=== PATIENT | female | born 1940 | race Caucasian/White ===

== ENCOUNTER 2017-11-08 11:56 | Emergency (ER) | payer MEDICARE, OTHER ==
[~2017-11-08] VITALS: Ht 165.1 cm; Wt 105.2 kg
[~2017-11-08 11:56] MED LIST: TRAMADOL HCL50 M1 PO; Z.0.BACTRIM DS TAB1 PO; Z.0.MIRAPEX0.25 MG PO; Z.0.NORCO 5-325 TA1 PO
== END 2017-11-08 12:25 | disposition home or self-care (01) ==
LOC: FSED 11:56
DX: H10.402 Unspecified chronic conjunctivitis, left eye (principal)
CPT/HCPCS: 99282

== ENCOUNTER 2018-08-27 08:38 | Emergency (ER) | payer MEDICARE ==
[~2018-08-27] VITALS: Ht 165.1 cm; Wt 105.2 kg
== END 2018-08-27 09:19 | disposition home or self-care (01) ==
LOC: FSED 08:38
DX: K08.89 Other specified disorders of teeth and supporting structures (principal); K02.9 Dental caries, unspecified; G25.81 Restless legs syndrome
CPT/HCPCS: 99282

== ENCOUNTER → 2019-12-20 | Outpatient (CLI) | payer MEDICARE ==
[~2019-12-20] MED LIST changes: +DEXMEDETOMIDINE HCL 2 ML ONE; +FENTANYL CITRATE/PF 100MCG/2 ML INJ ONE; +LACTATED RINGER'S 1,000 ML ONE; +LORAZEPAM INJ 2 MG/ML VIAL ONE; +MIDAZOLAM HCL 2 MG/2 ML VIAL ONE
[2019-12-20 12:30] LABS: BASOPHILS % 0.5 % (0.0-1.0); EOSINOPHILS # (AUTO) 0.2 (0.0-0.4); EOSINOPHILS % 2.4 % (0.0-6.0); HEMATOCRIT 40.6 % (34.2-44.1); HEMOGLOBIN 12.7 g/dL (12.0-16.0); LYMPHOCYTES # (AUTO) 2.1 (1.0-3.2); LYMPHOCYTES % 31.6 % (18.0-39.1); MEAN CORPUSCULAR HEMOGLOBIN 26.1 pg (28-32); MEAN CORPUSCULAR HGB CONC 31.3 g/dL (31-35); MEAN CORPUSCULAR VOLUME 83.4 fL (81-99); MONOCYTES # (AUTO) 0.5 (0.2-0.8); MONOCYTES % 6.9 % (4.4-11.3); NEUTROPHILS # (AUTO) 3.9 (2.1-6.9); NEUTROPHILS % 58.4 % (38.7-80.0); PLATELET COUNT 226 x10e3/uL (140-360); RED BLOOD COUNT 4.87 x10e6/uL (3.6-5.1); RED CELL DISTRIBUTION WIDTH 14.2 % (11.7-14.4)
[2019-12-20 12:49] LABS: ANION GAP 16.3 mmol/L (8-16); BLOOD UREA NITROGEN 14 mg/dL (7-26); BUN/CREATININE RATIO 18 (6-25); CALCIUM 9.5 mg/dL (8.4-10.2); CARBON DIOXIDE 22 mmol/L (22-29); CHLORIDE 104 mmol/L (98-107); CREATININE, SERUM 0.77 mg/dL (0.57-1.11); EST GLOMERULAR FILTRATION RATE > 60 ML/MIN (60-); GLUCOSE 90 mg/dL (74-118); POTASSIUM 4.3 mmol/L (3.5-5.1); SODIUM 138 mmol/L (136-145)
--- NOTE | 2019-12-20 12:54 | Diagnostic Imaging Report ---
EXAMINATION: CHEST 2 VIEWS INDICATION: Pre-operative COMPARISON: None FINDINGS: LINES/TUBES:None LUNGS:The lungs are well-inflated. No focal consolidation or pulmonary edema. PLEURA:No pleural effusion or pneumothorax. MEDIASTINUM:The cardiomediastinal silhouette appears normal in size and shape. BONES/SOFT TISSUES:No acute osseous injury. ABDOMEN:No free air under the diaphragm. IMPRESSION: No metallic implanted devices or foreign bodies in the thorax. No focal pneumonia or pulmonary edema. Signed by: Oj Kay MD on 12/20/2019 12:50 PM
--- NOTE | 2019-12-20 15:28 | Diagnostic Imaging Report ---
MRI of the right hip without contrast. History: Hip pain. Back pain. Decreased range of motion. Pain not responding to conservative management. Technique: Multiplanar multisequence MRI of the right hip without contrast. Comparison MRI from the same day of the lumbar spine Findings: Please see report from MRI lumbar spine from the same day for further details. No acute fracture, subluxation or avascular necrosis about the right hip. Scattered degenerative change about the visualized lower lumbar spine and pelvis. The urinary bladder and remainder of the visualized pelvic structures are grossly unremarkable. 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 Degenerative type tearing of the right hip labrum. Physiologic amount of fluid in the right hip joint. The remainder of the visualized ligaments and tendons about the right hip are intact. Soft tissue edema adjacent to the right hip greater trochanter could be due to trochanteric bursitis. The visualized neurovascular bundles are intact. There is mild degenerative arthrosis in the left hip joint and findings which could be due to left-sided greater trochanteric bursitis. 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 Soft tissue edema adjacent to the right hip greater trochanter could be due to trochanteric bursitis. There is mild degenerative arthrosis in the left hip joint and findings which could be due to left-sided greater trochanteric bursitis. Signed by: Dr. Jordon Reed M.D. on 12/20/2019 3:25 PM
--- NOTE | 2019-12-21 11:16 | Diagnostic Imaging Report ---
MRI SPINE LUMBAR WO HISTORY: Leg pain, back pain; right groin and hip pain COMPARISON: Report from CT of the abdomen/pelvis dated 12/15/2011 TECHNIQUE: Sagittal T1, sagittal T2, sagittal STIR, axial T2, coronal T2, and axial proton density weighted images of the lumbar spine were obtained without contrast. DISCUSSION: Number of non-rib bearing lumbar vertebral bodies: 5. Alignment: Normal lordosis. Mild thoracolumbar levoscoliosis is present. Vertebrae: Scattered nodular T1 hyperintense vertebral body lesions are benign hemangiomas. Otherwise, no fractures, or neoplasm. Conus medullaris: Normal, ends at L1-L2. Cauda equina: No masses or arachnoiditis. Posterior paraspinal muscles: There is mild paraspinal atrophy and edema at the lumbosacral junction. Soft tissues: Cholelithiasis is present. Small nodular T2 hyperintense lesions in the right kidney are most likely cysts. Moderate multilevel disc degeneration is present. There are nonspecific mild inflammatory endplate changes at L3-L4 and L4-L5. T12-L1: Patent canal and foramina. L1-L2: Mild to moderate canal stenosis due to disc bulge and ligamentum flavum thickening. The lateral recesses are slightly effaced, right greater than left. Mild bilateral foraminal stenoses due to disc bulge and facet arthrosis. L2-L3: There is mild retrolisthesis of L2 on L3. Mild to moderate canal stenosis due to disc bulge and ligamentum flavum thickening with slight effacement of the bilateral lateral recesses. Mild right and moderate left foraminal stenoses due to disc bulge and facet arthrosis. L3-L4: Mild canal stenosis due to disc bulge and ligamentum flavum thickening. The left lateral recess is slightly effaced. Mild to moderate bilateral foraminal stenoses due to disc bulge and facet arthrosis. L4-L5: Grade 1 anterolisthesis of L4 on L5 due to severe bilateral facet arthrosis. Periarticular edema along the bilateral L4-L5 facet joints is associated with small joint effusions and small posterior synovial cysts. Moderate canal stenosis due to uncovered disc bulge and ligamentum flavum thickening. The left lateral recess is effaced. The descending left L5 nerve root is likely compressed. Mild to moderate right and moderate left foraminal stenoses due to uncovered disc bulge and facet arthrosis. L5-S1: Patent canal and foramina. IMPRESSION: 1. Moderate multilevel disc degeneration with nonspecific minimal inflammatory endplate changes at L3-L4 and L4-L5. 2. Grade 1 anterolisthesis of L4 on L5 due to advanced bilateral L4-L5 facet arthrosis. Bilateral L4-L5 facet synovitis is present. 3. Multilevel degenerative canal stenoses - moderate at L4-L5. 4. Mild to moderate multilevel bilateral degenerative foraminal stenoses as described above. Signed by: Dr. David Fragoso M.D. on 12/21/2019 11:13 AM
== END ==
LOC: MRI 12-05 08:10
PROVIDERS: ATTEND Student in an Organized Health Care Education/Training Program
DX: M79.606 Pain in leg, unspecified (principal); M54.5 Low back pain; Z11.59 Encounter for screening for other viral diseases
CPT/HCPCS: 36415; 71046; 72148; 73721; 80048; 85025; 93005; J2060; J2250; J3010; J7121; U0002

== ENCOUNTER 2021-05-24 22:08 | Emergency (ER) | payer MEDICARE ==
[~2021-05-24] VITALS: Ht 165.1 cm; Wt 105.2 kg
[~2021-05-24 22:08] MED LIST changes: -DEXMEDETOMIDINE HCL 2 ML ONE; -FENTANYL CITRATE/PF 100MCG/2 ML INJ ONE; -LACTATED RINGER'S 1,000 ML ONE; -LORAZEPAM INJ 2 MG/ML VIAL ONE; -MIDAZOLAM HCL 2 MG/2 ML VIAL ONE
[2021-05-24 22:50] LABS: BASOPHILS % 0.5 % (0.0-1.0); EOSINOPHILS # (AUTO) 0.1 (0.0-0.4); EOSINOPHILS % 2.2 % (0.0-6.0); HEMATOCRIT 36.8 % (34.2-44.1); LYMPHOCYTES # (AUTO) 1.6 (1.0-3.2); LYMPHOCYTES % 25.4 % (18.0-39.1); MEAN CORPUSCULAR HEMOGLOBIN 24.9 pg (28-32); MEAN CORPUSCULAR HGB CONC 29.9 g/dL (31-35); MEAN CORPUSCULAR VOLUME 83.4 fL (81-99); MONOCYTES # (AUTO) 0.4 (0.2-0.8); MONOCYTES % 6.7 % (4.4-11.3); NEUTROPHILS # (AUTO) 4.1 (2.1-6.9); NEUTROPHILS % 64.9 % (38.7-80.0); PLATELET COUNT 194 x10e3/uL (140-360); RED BLOOD COUNT 4.41 x10e6/uL (3.6-5.1); RED CELL DISTRIBUTION WIDTH 14.4 % (11.7-14.4)
[2021-05-24 23:07] LABS: ALBUMIN 3.6 g/dL (3.5-5.0); ALBUMIN/GLOBULIN RATIO 1.1 (0.8-2.0); ANION GAP 13.2 mmol/L (8-16); CALCIUM 9.4 mg/dL (8.4-10.2); CREATININE, SERUM 0.76 mg/dL (0.57-1.11); POTASSIUM 4.2 mmol/L (3.5-5.1)
[2021-05-25] MEDS ORDERED: TRAMADOL HCL 50 MG TAB PO ONE
[2021-05-25] MEDS ORDERED: ULTRAM 50MG50 MG PO (00:48)
== END 2021-05-25 00:55 | disposition home or self-care (01) ==
LOC: ER 23:00
DX: S39.012A Strain of muscle, fascia and tendon of lower back, initial encounter (principal); G25.81 Restless legs syndrome; H35.30 Unspecified macular degeneration; I50.9 Heart failure, unspecified; Z87.442 Personal history of urinary calculi
CPT/HCPCS: 36415; 74176; 80053; 85025; 99284

== ENCOUNTER 2021-12-19 01:00 | Inpatient (IN) | payer MEDICARE ==
[~2021-12-19] VITALS: Ht 167.6 cm; Wt 107.6 kg
[2021-12-19] VITALS (9 sets, daily range): BP systolic 119–156; BP diastolic 46–64
[~2021-12-19 01:00] MED LIST changes: +ULTRAM 50MG50 MG PO
[2021-12-19] MEDS ORDERED: ONDANSETRON HCL INJ 2MG/ML 2ML 2 MG/ML VIAL IV PRN (01:30)
[2021-12-19] MEDS ORDERED: SODIUM CHLORIDE 0.9% 1000ML 1,000 ML IV SCH (01:30)
[2021-12-19] MEDS ORDERED: Morphine 4mg INJECTION 4 MG/ML INJ IV PRN (01:30)
[2021-12-19] MEDS ORDERED: FENTANYL CITRATE/PF 100MCG/2 ML INJ ONE (01:36)
[2021-12-19] MEDS ORDERED: ONDANSETRON HCL INJ 2MG/ML 2ML 2 MG/ML VIAL ONE (01:36)
[2021-12-19] MEDS ORDERED: SODIUM CHLORIDE 0.9% 1000ML 1,000 ML ONE (01:36)
[2021-12-19 01:38] LABS: BASOPHILS # (AUTO) 0.1 (0.0-0.1); BASOPHILS % 0.7 % (0.0-1.0); EOSINOPHILS # (AUTO) 0.8 (0.0-0.4); EOSINOPHILS % 9.7 % (0.0-6.0); HEMATOCRIT 34.2 % (34.2-44.1); HEMOGLOBIN 10.3 g/dL (12.0-16.0); LYMPHOCYTES # (AUTO) 2.4 (1.0-3.2); MEAN CORPUSCULAR HEMOGLOBIN 25.4 pg (28-32); MEAN CORPUSCULAR HGB CONC 30.1 g/dL (31-35); MEAN CORPUSCULAR VOLUME 84.2 fL (81-99); MONOCYTES # (AUTO) 0.5 (0.2-0.8); MONOCYTES % 5.8 % (4.4-11.3); NEUTROPHILS # (AUTO) 4.4 (2.1-6.9); NEUTROPHILS % 53.7 % (38.7-80.0); PLATELET COUNT 294 x10e3/uL (140-360); RED BLOOD COUNT 4.06 x10e6/uL (3.6-5.1); RED CELL DISTRIBUTION WIDTH 17.6 % (11.7-14.4)
[2021-12-19] MEDS ORDERED: FENTANYL CITRATE/PF 100MCG/2 ML INJ IV ONE (01:45)
[2021-12-19 01:57] LABS: ALBUMIN 3.4 g/dL (3.5-5.0); ALBUMIN/GLOBULIN RATIO 0.9 (0.8-2.0); ANION GAP 16.5 mmol/L (8-16); CREATININE, SERUM 0.83 mg/dL (0.57-1.11); POTASSIUM 4.5 mmol/L (3.5-5.1)
[2021-12-19 01:58] LABS: CREATINE KINASE MB 1.6 ng/mL (0-5.0)
[2021-12-19] MEDS ORDERED: NEURONTIN100 MG PO (04:32)
[2021-12-19] MEDS ORDERED: DOCUSATE SODIUM 100 MG CAP PO PRN (14:30)
[2021-12-19] MEDS ORDERED: SODIUM CHLORIDE 0.45% 1,000 ML IV ONE (14:30)
[2021-12-19] MEDS ORDERED: ACETAMINOPHEN 325 MG TAB PO PRN (14:30)
[2021-12-19] MEDS: GABAPENTIN 100 MG CAP PO SCH (16:05)
[2021-12-19] MEDS: PRAMIPEXOLE DIHYDROCHLORIDE 0.25 MG TAB PO SCH (18:16)
[2021-12-19] MEDS: FUROSEMIDE INJ 10 MG/ML 2 ML VIAL IV SCH (20:04)
[2021-12-19] MEDS: TRAMADOL HCL 50 MG TAB PO PRN (20:04)
[2021-12-20] VITALS (8 sets, daily range): BP systolic 106–133; BP diastolic 47–58
[2021-12-20 05:55] LABS: BASOPHILS # (AUTO) 0.1 (0.0-0.1); BASOPHILS % 0.7 % (0.0-1.0); EOSINOPHILS # (AUTO) 0.9 (0.0-0.4); EOSINOPHILS % 11.8 % (0.0-6.0); HEMATOCRIT 28.9 % (34.2-44.1); HEMOGLOBIN 8.9 g/dL (12.0-16.0); LYMPHOCYTES # (AUTO) 2.3 (1.0-3.2); LYMPHOCYTES % 31.4 % (18.0-39.1); MEAN CORPUSCULAR HEMOGLOBIN 25.7 pg (28-32); MEAN CORPUSCULAR HGB CONC 30.8 g/dL (31-35); MEAN CORPUSCULAR VOLUME 83.5 fL (81-99); MONOCYTES # (AUTO) 0.5 (0.2-0.8); MONOCYTES % 6.4 % (4.4-11.3); NEUTROPHILS # (AUTO) 3.5 (2.1-6.9); NEUTROPHILS % 49.1 % (38.7-80.0); PLATELET COUNT 245 x10e3/uL (140-360); RED BLOOD COUNT 3.46 x10e6/uL (3.6-5.1); RED CELL DISTRIBUTION WIDTH 18.1 % (11.7-14.4)
[2021-12-20 06:17] LABS: CHOL/HDL RATIO 2.7 (3.0-3.6)
[2021-12-20 06:18] LABS: ALBUMIN 2.8 g/dL (3.5-5.0); ANION GAP 13.5 mmol/L (8-16); CALCIUM 8.3 mg/dL (8.4-10.2); CREATININE, SERUM 0.72 mg/dL (0.57-1.11); POTASSIUM 4.5 mmol/L (3.5-5.1)
[2021-12-20] MEDS: FUROSEMIDE INJ 10 MG/ML 2 ML VIAL IV SCH (09:00)
[2021-12-20] MEDS ORDERED: PRAMIPEXOLE DIHYDROCHLORIDE 0.25 MG TAB PO SCH (09:00)
[2021-12-20] MEDS: GABAPENTIN 100 MG CAP PO SCH ×2 (09:02→16:11)
[2021-12-20] MEDS: MULTIVITAMINS/MINERALS TAB PO SCH (09:02)
[2021-12-20] MEDS: PRAMIPEXOLE DIHYDROCHLORIDE 0.25 MG TAB PO SCH (09:03)
[2021-12-20] MEDS ORDERED: ACETAMINOPHEN 325 MG TAB PO PRN (10:30)
[2021-12-20] MEDS: TRAMADOL HCL 50 MG TAB PO SCH ×2 (11:56→16:11)
[2021-12-21] VITALS (8 sets, daily range): BP systolic 125–157; BP diastolic 46–64
[2021-12-21] MEDS: MULTIVITAMINS/MINERALS TAB PO SCH (08:22)
[2021-12-21] MEDS: FUROSEMIDE INJ 10 MG/ML 4 ML VIAL IV SCH (08:22)
[2021-12-21] MEDS: GABAPENTIN 100 MG CAP PO SCH ×2 (08:22→17:18)
[2021-12-21] MEDS: TRAMADOL HCL 50 MG TAB PO SCH ×2 (08:23→17:19)
[2021-12-21] MEDS: FUROSEMIDE INJ 10 MG/ML 4 ML VIAL IV ONE (17:19)
[2021-12-21] MEDS: ALLOPURINOL 100 MG TAB PO SCH (18:46)
[2021-12-21] MEDS: METHYLPREDNISOLONE SOD SUCC 40 MG/ML VIAL 1ML IV SCH (18:46)
[2021-12-21] MEDS ORDERED: PRAMIPEXOLE DIHYDROCHLORIDE 0.25 MG TAB PO SCH (21:00)
[2021-12-22] VITALS (7 sets, daily range): BP systolic 114–141; BP diastolic 47–64
[2021-12-22] MEDS: METHYLPREDNISOLONE SOD SUCC 40 MG/ML VIAL 1ML IV SCH ×3 (06:03→17:40)
[2021-12-22 06:55] LABS: BASOPHILS % 0.3 % (0.0-1.0); EOSINOPHILS % 0.3 % (0.0-6.0); HEMATOCRIT 35.2 % (34.2-44.1); HEMOGLOBIN 10.7 g/dL (12.0-16.0); LYMPHOCYTES % 27.5 % (18.0-39.1); MEAN CORPUSCULAR HEMOGLOBIN 25.1 pg (28-32); MEAN CORPUSCULAR HGB CONC 30.4 g/dL (31-35); MEAN CORPUSCULAR VOLUME 82.6 fL (81-99); MONOCYTES # (AUTO) 0.1 (0.2-0.8); NEUTROPHILS # (AUTO) 2.5 (2.1-6.9); NEUTROPHILS % 68.4 % (38.7-80.0); PLATELET COUNT 292 x10e3/uL (140-360); RED BLOOD COUNT 4.26 x10e6/uL (3.6-5.1); RED CELL DISTRIBUTION WIDTH 16.9 % (11.7-14.4)
[2021-12-22 07:24] LABS: ANION GAP 16.2 mmol/L (8-16); CALCIUM 9.1 mg/dL (8.4-10.2); CREATININE, SERUM 0.77 mg/dL (0.57-1.11); MAGNESIUM 2.1 MG/DL (1.3-2.1); POTASSIUM 4.2 mmol/L (3.5-5.1)
[2021-12-22] MEDS: ALLOPURINOL 100 MG TAB PO SCH (08:47)
[2021-12-22] MEDS: MULTIVITAMINS/MINERALS TAB PO SCH (08:47)
[2021-12-22] MEDS: METOPROLOL SUCCINATE 25 MG TAB XL PO SCH (08:48)
[2021-12-22] MEDS: TRAMADOL HCL 50 MG TAB PO SCH ×2 (08:48→16:28)
[2021-12-22] MEDS: GABAPENTIN 100 MG CAP PO SCH ×2 (08:48→16:28)
[2021-12-22] MEDS: FUROSEMIDE INJ 10 MG/ML 4 ML VIAL IV SCH (08:48)
[2021-12-22] MEDS ORDERED: FUROSEMIDE INJ 10 MG/ML 4 ML VIAL IV ONE (16:00)
[2021-12-22] MEDS: FUROSEMIDE INJ 10 MG/ML 4 ML VIAL IV ONE (17:40)
[2021-12-22] MEDS ORDERED: PRAMIPEXOLE DIHYDROCHLORIDE 0.25 MG TAB PO SCH ×2 (18:00→21:00)
[2021-12-23] VITALS: BP 117/45
[2021-12-23] MEDS: TRAMADOL HCL 50 MG TAB PO PRN (03:53)
[2021-12-23 04:00] VITALS: BP 123/60
[2021-12-23] MEDS: METHYLPREDNISOLONE SOD SUCC 40 MG/ML VIAL 1ML IV SCH ×2 (06:00→18:36)
[2021-12-23] MEDS ORDERED: ONDANSETRON HCL 4 MG ORAL DISINTEGRATING TAB SL PRN (07:45)
[2021-12-23 08:00] VITALS: BP 123/72
[2021-12-23 08:12] VITALS: BP 123/72
[2021-12-23] MEDS: GABAPENTIN 100 MG CAP PO SCH ×2 (08:58→16:32)
[2021-12-23] MEDS: FUROSEMIDE INJ 10 MG/ML 4 ML VIAL IV SCH (08:59)
[2021-12-23] MEDS: MULTIVITAMINS/MINERALS TAB PO SCH (09:00)
[2021-12-23] MEDS: METOPROLOL SUCCINATE 25 MG TAB XL PO SCH (09:00)
[2021-12-23] MEDS: ALLOPURINOL 100 MG TAB PO SCH (09:00)
[2021-12-23] MEDS: TRAMADOL HCL 50 MG TAB PO SCH ×2 (09:00→16:32)
[2021-12-23 12:06] VITALS: BP 134/63
[2021-12-23 15:57] VITALS: BP 122/60
[2021-12-23] MEDS ORDERED: FUROSEMIDE INJ 10 MG/ML 4 ML VIAL IV ONE (16:00)
[2021-12-23] MEDS ORDERED: ALLOPURINOL100 MG PO (16:37)
[2021-12-23] MEDS ORDERED: TOPROL XL25 MG PO (16:37)
[2021-12-23] MEDS ORDERED: LASIX20 MG PO (16:37)
[2021-12-23] MEDS ORDERED: PREDNISONE20 MG PO (16:37)
[2021-12-23] MEDS ORDERED: PRAMIPEXOLE DIHYDROCHLORIDE 0.25 MG TAB PO SCH (17:00)
== END 2021-12-23 19:12 | DRG 564 ==
LOC: ER 01:10 → ERHOLD 01:31 → MED/SURG3 03:07 → OBSVTOIN 12-21 07:36
PROVIDERS: ADMIT Internal Medicine; ATTEND Internal Medicine
DX: M23.41 Loose body in knee, right knee (principal); I50.33 Acute on chronic diastolic (congestive) heart failure; R64 Cachexia; M17.11 Unilateral primary osteoarthritis, right knee; I11.0 Hypertensive heart disease with heart failure; E86.0 Dehydration; M10.9 Gout, unspecified; E66.09 Other obesity due to excess calories; Z68.38 Body mass index [BMI] 38.0-38.9, adult; G25.81 Restless legs syndrome; Z87.891 Personal history of nicotine dependence; R62.7 Adult failure to thrive; Z96.641 Presence of right artificial hip joint; S83.241A Other tear of medial meniscus, current injury, right knee, initial encounter; Z20.822 Contact with and (suspected) exposure to COVID-19
CPT/HCPCS: 0223U; 36415; 71046; 80048; 80053; 80061; 82550; 82553; 83036; 83735; 83880; 84484; 84550; 85025; 93005; 93306; 93970; 99251; 99284; G0378; J1940; J2405; J2920; J3010; J7030

== ENCOUNTER 2023-12-06 14:56 | Emergency (ER) | payer MEDICARE ==
[~2023-12-06] VITALS: Ht 167.6 cm; Wt 107.5 kg
[~2023-12-06 14:56] MED LIST changes: +ACETAMINOPHEN-1 EAC4 PO; +ALLOPURINOL100 MG PO; +CEPHALEXIN500 MG PO; +FUROSEMIDE40 MG PO; +K DUR10 MEQ PO; +LASIX20 MG PO; +LASIX40 MG PO; +MAG-OXIDE400 MG PO; +NEURONTIN100 MG PO; +PREDNISONE20 MG PO; +TOPROL XL25 MG PO
[2023-12-06 15:06] VITALS: TEMP 98.3
[2023-12-06 15:37] LABS: BASOPHILS % 0.5 % (0.0-1.0); EOSINOPHILS # (AUTO) 0.4 (0.0-0.4); EOSINOPHILS % 6.4 % (0.0-6.0); HEMATOCRIT 35.8 % (34.2-44.1); HEMOGLOBIN 10.8 g/dL (12.0-16.0); LYMPHOCYTES # (AUTO) 1.3 (1.0-3.2); LYMPHOCYTES % 22.4 % (18.0-39.1); MEAN CORPUSCULAR HEMOGLOBIN 25.2 pg (28-32); MEAN CORPUSCULAR HGB CONC 30.2 g/dL (31-35); MEAN CORPUSCULAR VOLUME 83.6 fL (81-99); MONOCYTES # (AUTO) 0.4 (0.2-0.8); MONOCYTES % 7.1 % (4.4-11.3); NEUTROPHILS # (AUTO) 3.6 (2.1-6.9); NEUTROPHILS % 63.4 % (38.7-80.0); PLATELET COUNT 175 x10e3/uL (140-360); RED BLOOD COUNT 4.28 x10e6/uL (3.6-5.1); RED CELL DISTRIBUTION WIDTH 16.2 % (11.7-14.4); WHITE BLOOD COUNT 5.62 x10e3/uL (4.8-10.8)
[2023-12-06 15:47] LABS: INR 1.1; PROTHROMBIN TIME 14.8 seconds (11.9-14.5)
[2023-12-06 15:48] LABS: PARTIAL THROMBOPLASTIN TIME 27.4 seconds (23.8-35.5)
[2023-12-06 15:53] LABS: ALBUMIN 4.1 g/dL (3.5-5.0); ALBUMIN/GLOBULIN RATIO 1.3 (0.8-2.0); ANION GAP 15.5 mmol/L (8-16); BILIRUBIN,TOTAL 0.8 mg/dL (0.2-1.2); CALCIUM 9.5 mg/dL (8.4-10.2); CREATININE, SERUM 0.96 mg/dL (0.57-1.11); POTASSIUM 3.5 mmol/L (3.5-5.1); TOTAL PROTEIN 7.2 g/dL (6.5-8.1)
[2023-12-06 16:00] LABS: TROPONIN I 0.011 ng/mL (0-0.300)
[2023-12-06] MEDS ORDERED: MEDROL4 M2 PO (16:49)
[2023-12-06] MEDS ORDERED: EPINEPHRIN0.3 MG/0.3 IM (16:49)
[2023-12-06] MEDS: FUROSEMIDE INJ 10 MG/ML 2 ML VIAL IV ONE (16:50)
[2023-12-06 17:03] VITALS: PULSE 68; RESP 18; O2SAT 100
[2023-12-06 17:42] LABS: BILIRUBIN,URINE NEGATIVE (NEGATIVE); CLARITY,URINE CLEAR (CLEAR); COLOR,URINE YELLOW (YELLOW); GLUCOSE, URINE NEGATIVE (NEGATIVE); KETONES,URINE NEGATIVE (NEGATIVE); NITRITE,URINE NEGATIVE (NEGATIVE); PH,URINE 6.5 (5 - 7); PROTEIN,URINE DIPSTICK NEGATIVE (NEGATIVE); URINE UROBILINOGEN 0.2 mg/dL (0.2 - 1)
[2023-12-06] MEDS: ACETAMINOPHEN 325 MG TAB PO ONE (17:42)
[2023-12-06 17:43] LABS: LEUKOCYTE ESTERASE ,URINE TRACE (NEGATIVE)
[2023-12-06 17:53] LABS: BACTERIA,URINE MODERATE /HPF; EPITHELIAL CELLS,URINE MODERATE /LPF; RBC,URINE 0-5 /HPF (0-5); WBC,URINE (MAN) 0-5 /HPF (0-5)
== END 2023-12-06 18:40 | disposition home or self-care (01) ==
LOC: ER 16:39
DX: R60.9 Edema, unspecified (principal); Z91.148 Patient's other noncompliance with medication regimen for other reason; Z11.52 Encounter for screening for COVID-19
CPT/HCPCS: 36415; 71045; 80053; 81001; 82550; 83735; 83880; 84484; 85025; 85610; 85730; 93005; 99283; J1940; U0002

== ENCOUNTER 2024-02-12 18:27 | Inpatient (IN) | payer MEDICARE ==
[~2024-02-12] VITALS: Ht 165.1 cm; Wt 100.2 kg
[~2024-02-12 18:27] MED LIST changes: +EPINEPHRIN0.3 MG/0.3 IM; +MEDROL4 M2 PO
[2024-02-12 20:08] LABS: BASOPHILS % 0.4 % (0.0-1.0); EOSINOPHILS # (AUTO) 0.3 (0.0-0.4); EOSINOPHILS % 4.7 % (0.0-6.0); HEMATOCRIT 31.8 % (34.2-44.1); HEMOGLOBIN 9.5 g/dL (12.0-16.0); LYMPHOCYTES # (AUTO) 1.5 (1.0-3.2); LYMPHOCYTES % 21.4 % (18.0-39.1); MEAN CORPUSCULAR HEMOGLOBIN 24.7 pg (28-32); MEAN CORPUSCULAR HGB CONC 29.9 g/dL (31-35); MEAN CORPUSCULAR VOLUME 82.6 fL (81-99); MONOCYTES # (AUTO) 0.4 (0.2-0.8); MONOCYTES % 6.3 % (4.4-11.3); NEUTROPHILS # (AUTO) 4.6 (2.1-6.9); NEUTROPHILS % 66.8 % (38.7-80.0); PLATELET COUNT 239 x10e3/uL (140-360); RED BLOOD COUNT 3.85 x10e6/uL (3.6-5.1); RED CELL DISTRIBUTION WIDTH 15.6 % (11.7-14.4); WHITE BLOOD COUNT 6.86 x10e3/uL (4.8-10.8)
[2024-02-12] MEDS: ONDANSETRON HCL INJ 2MG/ML 2ML 2 MG/ML VIAL IV STA (20:12)
[2024-02-12] MEDS: Morphine 4mg INJECTION 4 MG/ML INJ IV ONE (20:13)
[2024-02-12] MEDS: Vancomycin IV 1 GM in SODIUM CHLORIDE 0.9% 250ML 250 ML IV ONE (20:13)
[2024-02-12 20:26] LABS: ALBUMIN 3.4 g/dL (3.5-5.0); ALBUMIN/GLOBULIN RATIO 0.9 (0.8-2.0); BILIRUBIN,TOTAL 0.6 mg/dL (0.2-1.2); CALCIUM 9.2 mg/dL (8.4-10.2); CREATININE, SERUM 1.03 mg/dL (0.57-1.11); TOTAL PROTEIN 7.4 g/dL (6.5-8.1)
[2024-02-12] MEDS ORDERED: SODIUM CHLORIDE FLUSH 10 ML SYR INJ PRN (20:30)
[2024-02-12] MEDS ORDERED: ONDANSETRON HCL INJ 2MG/ML 2ML 2 MG/ML VIAL IV PRN (20:30)
[2024-02-12 21:25] VITALS: PULSE 85; RESP 16; O2SAT 98
[2024-02-12 23:26] VITALS: PULSE 95; RESP 18; TEMP 98.4
[2024-02-13] VITALS (9 sets, daily range): BP systolic 101–133; BP diastolic 34–73; PULSE 68–89; RESP 16–20; TEMP 97.4–99.1; O2SAT 92–99
[2024-02-13] MEDS: ACETAMINOPHEN 325 MG TAB PO PRN (02:47)
[2024-02-13 06:53] LABS: BASOPHILS % 0.4 % (0.0-1.0); EOSINOPHILS # (AUTO) 0.2 (0.0-0.4); EOSINOPHILS % 3.5 % (0.0-6.0); HEMOGLOBIN 8.1 g/dL (12.0-16.0); LYMPHOCYTES # (AUTO) 1.3 (1.0-3.2); LYMPHOCYTES % 18.6 % (18.0-39.1); MEAN CORPUSCULAR HEMOGLOBIN 24.5 pg (28-32); MEAN CORPUSCULAR HGB CONC 28.9 g/dL (31-35); MEAN CORPUSCULAR VOLUME 84.8 fL (81-99); MONOCYTES # (AUTO) 0.6 (0.2-0.8); MONOCYTES % 8.1 % (4.4-11.3); NEUTROPHILS # (AUTO) 4.8 (2.1-6.9); NEUTROPHILS % 68.8 % (38.7-80.0); PLATELET COUNT 187 x10e3/uL (140-360); RED CELL DISTRIBUTION WIDTH 15.6 % (11.7-14.4)
[2024-02-13 07:12] LABS: ALBUMIN 2.8 g/dL (3.5-5.0); ALBUMIN/GLOBULIN RATIO 0.8 (0.8-2.0); ANION GAP 13.9 mmol/L (8-16); BILIRUBIN,TOTAL 0.4 mg/dL (0.2-1.2); CALCIUM 8.6 mg/dL (8.4-10.2); CREATININE, SERUM 1.1 mg/dL (0.57-1.11); POTASSIUM 3.9 mmol/L (3.5-5.1); TOTAL PROTEIN 6.3 g/dL (6.5-8.1)
[2024-02-13] MEDS: Vancomycin IV 1 GM in SODIUM CHLORIDE 0.9% 250ML 250 ML IV SCH (09:45)
[2024-02-13] MEDS: PRAMIPEXOLE DIHYDROCHLORIDE 0.25 MG TAB PO SCH (16:59)
[2024-02-13] MEDS: FUROSEMIDE 40 MG TAB PO SCH (17:00)
[2024-02-14] VITALS (8 sets, daily range): BP systolic 108–170; BP diastolic 43–66; PULSE 71–89; RESP 16–20; TEMP 97.6–98.6; O2SAT 94–100
[2024-02-14 07:13] LABS: ANION GAP 13.8 mmol/L (8-16); CALCIUM 8.8 mg/dL (8.4-10.2); CREATININE, SERUM 1.14 mg/dL (0.57-1.11); MAGNESIUM 1.9 MG/DL (1.3-2.1); POTASSIUM 3.8 mmol/L (3.5-5.1)
[2024-02-14 08:16] LABS: BASOPHILS % 0.6 % (0.0-1.0); EOSINOPHILS # (AUTO) 0.3 (0.0-0.4); EOSINOPHILS % 5.2 % (0.0-6.0); HEMATOCRIT 33.8 % (34.2-44.1); HEMOGLOBIN 9.9 g/dL (12.0-16.0); LYMPHOCYTES # (AUTO) 1.5 (1.0-3.2); LYMPHOCYTES % 23.1 % (18.0-39.1); MEAN CORPUSCULAR HEMOGLOBIN 24.6 pg (28-32); MEAN CORPUSCULAR HGB CONC 29.3 g/dL (31-35); MEAN CORPUSCULAR VOLUME 84.1 fL (81-99); MONOCYTES # (AUTO) 0.5 (0.2-0.8); MONOCYTES % 7.8 % (4.4-11.3); NEUTROPHILS # (AUTO) 4.1 (2.1-6.9); PLATELET COUNT 157 x10e3/uL (140-360); RED BLOOD COUNT 4.02 x10e6/uL (3.6-5.1); RED CELL DISTRIBUTION WIDTH 15.6 % (11.7-14.4); WHITE BLOOD COUNT 6.57 x10e3/uL (4.8-10.8)
[2024-02-14] MEDS: Morphine 4mg INJECTION 4 MG/ML INJ IV PRN (14:54)
[2024-02-14] MEDS ORDERED: MELATONIN 3 MG TAB PO SCH (23:00)
[2024-02-15] VITALS (7 sets, daily range): BP systolic 99–127; BP diastolic 46–56; PULSE 71–80; RESP 17–20; TEMP 98.2–98.3; O2SAT 96–100
[2024-02-15] MEDS: TRIAMCINOLONE ACET 0.1% CREAM 15 GM TUBE TOP SCH (10:04)
[2024-02-15] MEDS: NYSTATIN 100,000 UNITS/GM CRM 30GM TUBE TOP SCH (10:04)
[2024-02-15] MEDS: MUPIROCIN 2% OINT 22 GM TUBE TOP SCH (17:13)
[2024-02-15] MEDS: MELATONIN 3 MG TAB PO ONE (20:45)
[2024-02-16] VITALS (8 sets, daily range): BP systolic 105–132; BP diastolic 43–65; PULSE 63–74; RESP 18–20; TEMP 97.7–98.7; O2SAT 95–100
[2024-02-16] MEDS: CHOLESTYRAMINE 4 GM PACKET PO ONE (15:11)
[2024-02-16] MEDS: TEMAZEPAM 7.5 MG CAP PO PRN (21:49)
[2024-02-17] VITALS (10 sets, daily range): BP systolic 112–136; BP diastolic 44–81; PULSE 62–69; RESP 18–20; TEMP 97.5–98.4; O2SAT 95–100
[2024-02-17] MEDS: CHOLESTYRAMINE 4 GM PACKET PO PRN (09:47)
[2024-02-17 09:49] LABS: BASOPHILS % 0.8 % (0.0-1.0); EOSINOPHILS # (AUTO) 0.4 (0.0-0.4); EOSINOPHILS % 8.5 % (0.0-6.0); HEMATOCRIT 32.5 % (34.2-44.1); HEMOGLOBIN 9.5 g/dL (12.0-16.0); LYMPHOCYTES # (AUTO) 1.4 (1.0-3.2); LYMPHOCYTES % 27.5 % (18.0-39.1); MEAN CORPUSCULAR HEMOGLOBIN 24.9 pg (28-32); MEAN CORPUSCULAR HGB CONC 29.2 g/dL (31-35); MEAN CORPUSCULAR VOLUME 85.1 fL (81-99); MONOCYTES # (AUTO) 0.4 (0.2-0.8); MONOCYTES % 7.6 % (4.4-11.3); NEUTROPHILS # (AUTO) 2.9 (2.1-6.9); NEUTROPHILS % 55.2 % (38.7-80.0); PLATELET COUNT 208 x10e3/uL (140-360); RED BLOOD COUNT 3.82 x10e6/uL (3.6-5.1); RED CELL DISTRIBUTION WIDTH 15.9 % (11.7-14.4); WHITE BLOOD COUNT 5.16 x10e3/uL (4.8-10.8)
[2024-02-17 10:07] LABS: ANION GAP 13.9 mmol/L (8-16); CALCIUM 9.2 mg/dL (8.4-10.2); CREATININE, SERUM 1.34 mg/dL (0.57-1.11); POTASSIUM 3.9 mmol/L (3.5-5.1)
[2024-02-17 12:57] LABS: FERRITIN 238.49 ng/mL (4.63-204.00)
[2024-02-17 13:16] LABS: FOLATE 6.8 ng/mL (7.0-15.4)
[2024-02-17] MEDS: PRAMIPEXOLE DIHYDROCHLORIDE 0.25 MG TAB PO SCH (15:07)
[2024-02-17] MEDS: ASCORBIC ACID 500 MG TAB PO SCH (15:07)
[2024-02-17] MEDS: FERROUS SULFATE 325 MG TAB PO SCH (15:07)
[2024-02-17] MEDS: CYANOCOBALAMIN INJ 1,000 MCG/ML VIAL IM ONE (15:08)
[2024-02-17] MEDS: ALTEPLASE RECOMBINANT 2 MG/2 ML VIAL IV ONE (15:08)
[2024-02-17] MEDS: FOLIC ACID 1 MG TAB PO ONE (15:13)
[2024-02-18] VITALS: BP 122/54; PULSE 63; RESP 18; TEMP 98; O2SAT 96
[2024-02-18 04:06] VITALS: BP 144/76; PULSE 59; RESP 20; TEMP 97.7; O2SAT 97
[2024-02-18 06:11] LABS: ANION GAP 15.8 mmol/L (8-16); CALCIUM 8.9 mg/dL (8.4-10.2); CREATININE, SERUM 1.38 mg/dL (0.57-1.11); POTASSIUM 3.8 mmol/L (3.5-5.1)
[2024-02-18] MEDS: SODIUM CHLORIDE 0.9% 250ML 250 ML ONE (07:55)
[2024-02-18 09:10] VITALS: BP 126/50; PULSE 68; RESP 20; TEMP 97.7; O2SAT 100
[2024-02-18] MEDS: FUROSEMIDE 40 MG TAB PO SCH (09:39)
[2024-02-18] MEDS: CYANOCOBALAMIN INJ 1,000 MCG/ML VIAL IM SCH (09:39)
[2024-02-18] MEDS: FOLIC ACID 1 MG TAB PO SCH (09:39)
[2024-02-18] MEDS: LACTATED RINGER'S 1,000 ML INJ SCH (17:05)
[2024-02-18 20:00] VITALS: BP_SYST 134; BP_SYST 135; BP_DIAS 50; PULSE 69; RESP 18; TEMP 97.9; O2SAT 99
[2024-02-19 06:05] LABS: ANION GAP 14.8 mmol/L (8-16); CALCIUM 9.4 mg/dL (8.4-10.2); POTASSIUM 3.8 mmol/L (3.5-5.1)
[2024-02-19 07:44] LABS: BILIRUBIN,URINE NEGATIVE (NEGATIVE); CLARITY,URINE CLEAR (CLEAR); COLOR,URINE YELLOW (YELLOW); GLUCOSE, URINE NEGATIVE (NEGATIVE); KETONES,URINE NEGATIVE (NEGATIVE); LEUKOCYTE ESTERASE ,URINE NEGATIVE (NEGATIVE); NITRITE,URINE NEGATIVE (NEGATIVE); PH,URINE 7 (5 - 7); PROTEIN,URINE DIPSTICK NEGATIVE (NEGATIVE); URINE UROBILINOGEN 0.2 mg/dL (0.2 - 1)
[2024-02-19 08:16] VITALS: BP 132/54; PULSE 65; RESP 18; TEMP 97.6; O2SAT 94
[2024-02-19 08:17] VITALS: BP 132/54; PULSE 65; RESP 18; TEMP 97.6; O2SAT 94
[2024-02-19 08:17] LABS: BACTERIA,URINE RARE /HPF; EPITHELIAL CELLS,URINE MANY /LPF; RBC,URINE 0-5 /HPF (0-5); WBC,URINE (MAN) 0-5 /HPF (0-5)
[2024-02-19 08:25] LABS: EOSINOPHIL SMEAR,URINE NONE SEEN (NONE SEEN)
[2024-02-19 11:29] VITALS: BP 132/50; PULSE 64; RESP 18; TEMP 97.6; O2SAT 96
[2024-02-19 16:19] VITALS: BP 107/57; PULSE 63; RESP 18; TEMP 98.4; O2SAT 98
[2024-02-19] MEDS ORDERED: ONDANSETRON HCL 4 MG ORAL DISINTEGRATING TAB PO PRN (17:15)
== END 2024-02-19 18:38 | disposition home health service (06) | DRG 602 ==
LOC: ER 18:43 → ERHOLD 20:30 → MED/SURG3 23:36
PROVIDERS: ADMIT Internal Medicine; ATTEND Internal Medicine
DX: L03.116 Cellulitis of left lower limb (principal); I50.33 Acute on chronic diastolic (congestive) heart failure; I13.0 Hypertensive heart and chronic kidney disease with heart failure and stage 1 through stage 4 chronic kidney disease, or unspecified chronic kidney disease; I83.228 Varicose veins of left lower extremity with both ulcer of other part of lower extremity and inflammation; L97.829 Non-pressure chronic ulcer of other part of left lower leg with unspecified severity; N17.9 Acute kidney failure, unspecified; I83.11 Varicose veins of right lower extremity with inflammation; I89.0 Lymphedema, not elsewhere classified; I87.8 Other specified disorders of veins; N18.30 Chronic kidney disease, stage 3 unspecified; G25.81 Restless legs syndrome; D63.1 Anemia in chronic kidney disease; R19.7 Diarrhea, unspecified; N39.498 Other specified urinary incontinence; M41.9 Scoliosis, unspecified; E66.9 Obesity, unspecified; G47.00 Insomnia, unspecified; R26.2 Difficulty in walking, not elsewhere classified
CPT/HCPCS: 29581; 36415; 36569; 71045; 76770; 80048; 80053; 80202; 81001; 81015; 82550; 82607; 82728; 82746; 83540; 83735; 83880; 84466; 85025; 85045; 87040; 93306; 93970; 94799; 99252; 99284; J2270; J2405; J2543; J2997; J3420; J7050

== ENCOUNTER 2024-03-21 12:33 | Outpatient (RCR) | payer MEDICARE | END 2024-03-26 | LOC: PT 12:33 | PROVIDERS: ATTEND Internal Medicine | DX: L03.116 Cellulitis of left lower limb (principal) ==

== ENCOUNTER 2024-04-08 06:48 | Inpatient (IN) | payer MEDICARE ==
[~2024-04-08] VITALS: Ht 165.1 cm; Wt 98.4 kg
[2024-04-08] VITALS (9 sets, daily range): BP systolic 110–119; BP diastolic 47–73; PULSE 57–68; RESP 16–18; TEMP 97.9–98.9; O2SAT 96–100
[2024-04-08] MEDS: ONDANSETRON HCL INJ 2MG/ML 2ML 2 MG/ML VIAL IV STA (07:42)
[2024-04-08] MEDS: Morphine 2mg Syringe 2 MG/ML SYR IV STA (07:42)
[2024-04-08 07:47] LABS: BASOPHILS % 0.6 % (0.0-1.0); EOSINOPHILS # (AUTO) 0.2 (0.0-0.4); EOSINOPHILS % 3.5 % (0.0-6.0); HEMATOCRIT 31.3 % (34.2-44.1); LYMPHOCYTES # (AUTO) 1.1 (1.0-3.2); LYMPHOCYTES % 20.9 % (18.0-39.1); MEAN CORPUSCULAR HEMOGLOBIN 24.3 pg (28-32); MEAN CORPUSCULAR HGB CONC 28.8 g/dL (31-35); MEAN CORPUSCULAR VOLUME 84.4 fL (81-99); MONOCYTES # (AUTO) 0.5 (0.2-0.8); MONOCYTES % 9.3 % (4.4-11.3); NEUTROPHILS # (AUTO) 3.5 (2.1-6.9); NEUTROPHILS % 65.5 % (38.7-80.0); PLATELET COUNT 187 x10e3/uL (140-360); RED BLOOD COUNT 3.71 x10e6/uL (3.6-5.1); RED CELL DISTRIBUTION WIDTH 16.5 % (11.7-14.4); WHITE BLOOD COUNT 5.37 x10e3/uL (4.8-10.8)
[2024-04-08 08:03] LABS: CLARITY,URINE CLEAR (CLEAR); COLOR,URINE YELLOW (YELLOW); PH,URINE 5.5 (5 - 7)
[2024-04-08 08:04] LABS: BILIRUBIN,URINE NEGATIVE (NEGATIVE); GLUCOSE, URINE NEGATIVE (NEGATIVE); KETONES,URINE NEGATIVE (NEGATIVE); LEUKOCYTE ESTERASE ,URINE NEGATIVE (NEGATIVE); NITRITE,URINE NEGATIVE (NEGATIVE); PROTEIN,URINE DIPSTICK 1+ (NEGATIVE); URINE UROBILINOGEN 0.2 mg/dL (0.2 - 1)
[2024-04-08 08:09] LABS: ALBUMIN 3.7 g/dL (3.5-5.0); ANION GAP 14.7 mmol/L (8-16); BILIRUBIN,TOTAL 0.6 mg/dL (0.2-1.2); CALCIUM 9.6 mg/dL (8.4-10.2); CREATININE, SERUM 0.88 mg/dL (0.57-1.11); MAGNESIUM 2.2 MG/DL (1.3-2.1); POTASSIUM 3.7 mmol/L (3.5-5.1); TOTAL PROTEIN 7.3 g/dL (6.5-8.1)
[2024-04-08 08:13] LABS: INR 1.08; PARTIAL THROMBOPLASTIN TIME 29.1 seconds (23.8-35.5); PROTHROMBIN TIME 14.7 seconds (11.9-14.5)
[2024-04-08 08:14] LABS: TROPONIN I 0.021 ng/mL (0-0.300)
[2024-04-08 08:15] LABS: BACTERIA,URINE FEW /HPF; EPITHELIAL CELLS,URINE FEW /LPF; RBC,URINE 0-5 /HPF (0-5)
[2024-04-08] MEDS ORDERED: POLYETHYLENE GLYCOL 3350 17 GM PACK PO PRN (14:00)
[2024-04-08] MEDS ORDERED: HYDRALAZINE HCL 20 MG/ML VIAL IV PRN (14:00)
[2024-04-08 15:08] LABS: TROPONIN I 0.022 ng/mL (0-0.300)
[2024-04-08] MEDS ORDERED: BUMETANIDE2 MG PO (16:29)
[2024-04-08] MEDS ORDERED: MIRAPEX ER1.5 MG PO (16:29)
[2024-04-08] MEDS ORDERED: K-DUR10 MEQ PO (16:29)
[2024-04-08] MEDS: FAMOTIDINE 20 MG TAB PO SCH (16:44)
[2024-04-08] MEDS: DOCUSATE SODIUM 100 MG CAP PO SCH (16:49)
[2024-04-08] MEDS: BUMETANIDE 1 MG TAB PO SCH (18:14)
[2024-04-08] MEDS: POTASSIUM CHLORIDE 20 MEQ TAB CR PO SCH (18:14)
[2024-04-08] MEDS: PRAMIPEXOLE DIHYDROCHLORIDE 1 MG TAB PO SCH (18:14)
[2024-04-08] MEDS: ACETAMINOPHEN 325 MG TAB PO PRN (20:04)
[2024-04-08] MEDS: Morphine 2mg Syringe 2 MG/ML SYR IV PRN (23:03)
[2024-04-08] MEDS: ONDANSETRON HCL INJ 2MG/ML 2ML 2 MG/ML VIAL IV PRN (23:03)
[2024-04-09] VITALS (9 sets, daily range): BP systolic 98–168; BP diastolic 48–76; PULSE 50–74; RESP 18–20; TEMP 97.5–98.2; O2SAT 94–100
[2024-04-09 05:59] LABS: BASOPHILS % 0.8 % (0.0-1.0); EOSINOPHILS # (AUTO) 0.3 (0.0-0.4); EOSINOPHILS % 5.9 % (0.0-6.0); HEMATOCRIT 27.8 % (34.2-44.1); HEMOGLOBIN 8.1 g/dL (12.0-16.0); LYMPHOCYTES # (AUTO) 1.5 (1.0-3.2); MEAN CORPUSCULAR HEMOGLOBIN 24.3 pg (28-32); MEAN CORPUSCULAR HGB CONC 29.1 g/dL (31-35); MEAN CORPUSCULAR VOLUME 83.5 fL (81-99); MONOCYTES # (AUTO) 0.5 (0.2-0.8); MONOCYTES % 10.8 % (4.4-11.3); NEUTROPHILS # (AUTO) 2.4 (2.1-6.9); NEUTROPHILS % 50.3 % (38.7-80.0); PLATELET COUNT 190 x10e3/uL (140-360); RED BLOOD COUNT 3.33 x10e6/uL (3.6-5.1); RED CELL DISTRIBUTION WIDTH 16.6 % (11.7-14.4); WHITE BLOOD COUNT 4.72 x10e3/uL (4.8-10.8)
[2024-04-09 06:24] LABS: ALBUMIN 3.2 g/dL (3.5-5.0); ANION GAP 12.1 mmol/L (8-16); BILIRUBIN,TOTAL 0.3 mg/dL (0.2-1.2); CALCIUM 8.6 mg/dL (8.4-10.2); CREATININE, SERUM 1.12 mg/dL (0.57-1.11); POTASSIUM 4.1 mmol/L (3.5-5.1); TOTAL PROTEIN 6.3 g/dL (6.5-8.1)
[2024-04-09 08:24] LABS: TROPONIN I 0.027 ng/mL (0-0.300)
[2024-04-10] VITALS (10 sets, daily range): BP systolic 109–153; BP diastolic 52–56; PULSE 52–65; RESP 16–21; TEMP 97.7–98.5; O2SAT 94–100
[2024-04-10 08:59] LABS: ANION GAP 14.1 mmol/L (8-16); CALCIUM 8.8 mg/dL (8.4-10.2); CREATININE, SERUM 0.88 mg/dL (0.57-1.11); MAGNESIUM 2.2 MG/DL (1.3-2.1); POTASSIUM 4.1 mmol/L (3.5-5.1)
[2024-04-10] MEDS: ALBUTEROL/IPRATROPIUM 3 ML NEB NEB ONE (11:59)
[2024-04-10] MEDS: ALBUTEROL/IPRATROPIUM 3 ML NEB ONE (13:16)
[2024-04-11] VITALS (8 sets, daily range): BP systolic 111–155; BP diastolic 52–82; PULSE 49–67; RESP 16–22; TEMP 97.6–98.5; O2SAT 98–100
[2024-04-11] MEDS: METHYLPREDNISOLONE SOD SUCC 125 MG/2ML VIAL IV ONE (11:02)
[2024-04-11] MEDS: ALBUTEROL/IPRATROPIUM 3 ML NEB NEB ONE (12:23)
[2024-04-11] MEDS: MELATONIN 3 MG TAB PO PRN (22:38)
[2024-04-12] VITALS (11 sets, daily range): BP systolic 107–155; BP diastolic 43–77; PULSE 51–67; RESP 16–21; TEMP 97.2–98.2; O2SAT 92–100
[2024-04-12] MEDS ORDERED: ONDANSETRON HCL 4 MG ORAL DISINTEGRATING TAB PO PRN (14:30)
[2024-04-12] MEDS: OXYMETAZOLINE HCL 0.05% NAS 1 SPRAY BTL SCH (14:44)
[2024-04-12] MEDS: ALBUTEROL/IPRATROPIUM 3 ML NEB NEB ONE (15:42)
[2024-04-13] VITALS (11 sets, daily range): BP systolic 106–140; BP diastolic 40–85; PULSE 52–110; RESP 17–22; TEMP 97.8–98.5; O2SAT 95–99
[2024-04-13 06:11] LABS: BASOPHILS % 0.7 % (0.0-1.0); EOSINOPHILS # (AUTO) 0.3 (0.0-0.4); EOSINOPHILS % 5.4 % (0.0-6.0); HEMATOCRIT 30.1 % (34.2-44.1); HEMOGLOBIN 9.1 g/dL (12.0-16.0); LYMPHOCYTES # (AUTO) 1.6 (1.0-3.2); LYMPHOCYTES % 26.9 % (18.0-39.1); MEAN CORPUSCULAR HEMOGLOBIN 24.3 pg (28-32); MEAN CORPUSCULAR HGB CONC 30.2 g/dL (31-35); MEAN CORPUSCULAR VOLUME 80.5 fL (81-99); MONOCYTES # (AUTO) 0.4 (0.2-0.8); MONOCYTES % 6.6 % (4.4-11.3); NEUTROPHILS # (AUTO) 3.6 (2.1-6.9); NEUTROPHILS % 59.9 % (38.7-80.0); PLATELET COUNT 193 x10e3/uL (140-360); RED BLOOD COUNT 3.74 x10e6/uL (3.6-5.1); RED CELL DISTRIBUTION WIDTH 16.2 % (11.7-14.4); WHITE BLOOD COUNT 5.95 x10e3/uL (4.8-10.8)
[2024-04-13 06:24] LABS: ANION GAP 13.3 mmol/L (8-16); CALCIUM 9.4 mg/dL (8.4-10.2); CREATININE, SERUM 0.94 mg/dL (0.57-1.11); POTASSIUM 4.3 mmol/L (3.5-5.1)
[2024-04-13 06:50] LABS: MAGNESIUM 2.1 MG/DL (1.3-2.1); PHOSPHORUS 3.9 MG/DL (2.3-4.7)
[2024-04-13] MEDS: AZITHROMYCIN 250 MG TAB PO SCH (07:59)
[2024-04-13] MEDS: FLUTICASONE PROPIONATE NASAL SPRAY NS SCH (09:47)
[2024-04-13] MEDS: ALBUTEROL/IPRATROPIUM 3 ML NEB NEB SCH (10:38)
[2024-04-14 03:32] VITALS: BP 121/80; PULSE 56; RESP 18; TEMP 97.8; O2SAT 98
[2024-04-14 06:00] VITALS: PULSE 72; RESP 22; O2SAT 96
[2024-04-14 08:21] VITALS: BP 108/67; PULSE 56; RESP 18; TEMP 97.6; O2SAT 97
[2024-04-14 08:25] VITALS: BP 108/67; PULSE 56; RESP 18; TEMP 97.6; O2SAT 97
[2024-04-14] MEDS ORDERED: MELATONIN3 MG PO (11:03)
[2024-04-14] MEDS ORDERED: ACETAMINOPHEN325 M1 PO (11:03)
[2024-04-14] MEDS ORDERED: BUMETANIDE1 MG PO (11:03)
[2024-04-14] MEDS ORDERED: ONDANSETRON ODT4 MG PO (11:03)
[2024-04-14] MEDS ORDERED: MIRALAX17 GM PO (11:03)
[2024-04-14] MEDS ORDERED: AZITHROMYCIN250 MG PO (11:03)
[2024-04-14] MEDS ORDERED: FAMOTIDINE20 MG PO (11:03)
[2024-04-14] MEDS ORDERED: FLUTICASONE PRO16 GM NS (11:03)
== END 2024-04-14 14:12 | disposition home or self-care (01) | DRG 689 ==
LOC: ER 06:52 → ERHOLD 10:14 → MED/SURG2 12:19
PROVIDERS: ADMIT Internal Medicine; ATTEND Internal Medicine
DX: N39.0 Urinary tract infection, site not specified (principal); I50.33 Acute on chronic diastolic (congestive) heart failure; J18.9 Pneumonia, unspecified organism; I13.0 Hypertensive heart and chronic kidney disease with heart failure and stage 1 through stage 4 chronic kidney disease, or unspecified chronic kidney disease; N12 Tubulo-interstitial nephritis, not specified as acute or chronic; N18.9 Chronic kidney disease, unspecified; D63.1 Anemia in chronic kidney disease; E83.41 Hypermagnesemia; Z66 Do not resuscitate; R53.81 Other malaise; I87.2 Venous insufficiency (chronic) (peripheral); G25.81 Restless legs syndrome; G47.00 Insomnia, unspecified; H91.90 Unspecified hearing loss, unspecified ear; M41.9 Scoliosis, unspecified; Z90.49 Acquired absence of other specified parts of digestive tract; Z90.710 Acquired absence of both cervix and uterus; Z87.891 Personal history of nicotine dependence; B96.1 Klebsiella pneumoniae [K. pneumoniae] as the cause of diseases classified elsewhere
CPT/HCPCS: 36415; 71045; 74176; 80048; 80053; 81001; 82550; 83690; 83735; 83880; 84100; 84484; 85025; 85610; 85730; 87040; 87086; 87186; 93005; 94640; 94799; 99252; 99285; J0696; J2270; J2405; J2470; J2919; J7050

== ENCOUNTER 2024-10-13 04:23 | Inpatient (IN) | payer MEDICARE ==
[~2024-10-13] VITALS: Ht 165.1 cm; Wt 94.3 kg
[2024-10-13] VITALS (9 sets, daily range): BP systolic 102–124; BP diastolic 48–56; PULSE 56–85; RESP 18–22; TEMP 97–98.1; O2SAT 20–97
[~2024-10-13 04:23] MED LIST changes: +ACETAMINOPHEN325 M1 PO; +AZITHROMYCIN250 MG PO; +BUMETANIDE1 MG PO; +BUMETANIDE2 MG PO; +FAMOTIDINE20 MG PO; +FLUTICASONE PRO16 GM NS; +K-DUR10 MEQ PO; +MELATONIN3 MG PO; +MIRALAX17 GM PO; +MIRAPEX ER1.5 MG PO; +ONDANSETRON ODT4 MG PO
[2024-10-13 05:34] LABS: BASOPHILS # (AUTO) 0.1 (0.0-0.1); BASOPHILS % 0.7 % (0.0-1.0); EOSINOPHILS # (AUTO) 0.8 (0.0-0.4); EOSINOPHILS % 11.1 % (0.0-6.0); HEMOGLOBIN 10.7 g/dL (12.0-16.0); LYMPHOCYTES # (AUTO) 1.7 (1.0-3.2); LYMPHOCYTES % 23.6 % (18.0-39.1); MEAN CORPUSCULAR HEMOGLOBIN 24.4 pg (28-32); MEAN CORPUSCULAR HGB CONC 30.6 g/dL (31-35); MEAN CORPUSCULAR VOLUME 79.7 fL (81-99); MONOCYTES # (AUTO) 0.5 (0.2-0.8); MONOCYTES % 6.9 % (4.4-11.3); NEUTROPHILS # (AUTO) 4.2 (2.1-6.9); NEUTROPHILS % 57.4 % (38.7-80.0); PLATELET COUNT 175 x10e3/uL (140-360); RED BLOOD COUNT 4.39 x10e6/uL (3.6-5.1); RED CELL DISTRIBUTION WIDTH 17.5 % (11.7-14.4); WHITE BLOOD COUNT 7.28 x10e3/uL (4.8-10.8)
[2024-10-13 05:56] LABS: TROPONIN I 0.006 ng/mL (0-0.300)
[2024-10-13 06:06] LABS: ALBUMIN/GLOBULIN RATIO 1.2 (0.8-2.0); BILIRUBIN,TOTAL 0.5 mg/dL (0.2-1.2); TOTAL PROTEIN 7.3 g/dL (6.5-8.1)
[2024-10-13] MEDS: FUROSEMIDE INJ 10 MG/ML 4 ML VIAL IV SCH (06:46)
[2024-10-13] MEDS ORDERED: METOPROLOL SUCC25 MG PO (07:23)
[2024-10-13] MEDS ORDERED: ELIQUIS5 MG PO (07:23)
[2024-10-13] MEDS ORDERED: BUMETANIDE1 MG PO (07:23)
[2024-10-13] MEDS ORDERED: PRESERVISION A1 EAC2 PO (07:23)
[2024-10-13] MEDS: HYDROCODONE/APAP 5MG-325MG TAB PO PRN (07:57)
[2024-10-13 16:12] LABS: TROPONIN I 0.006 ng/mL (0-0.300)
[2024-10-13] MEDS: APIXABAN 5 MG TABLET PO SCH (18:15)
[2024-10-13] MEDS: PRAMIPEXOLE DIHYDROCHLORIDE 0.25 MG TAB PO SCH (21:31)
[2024-10-13] MEDS: POTASSIUM CHLORIDE 20 MEQ TAB CR PO SCH (21:31)
[2024-10-14] VITALS (9 sets, daily range): BP systolic 100–118; BP diastolic 33–80; PULSE 54–78; RESP 18–20; TEMP 97.5–98; O2SAT 95–100
[2024-10-14 06:16] LABS: BASOPHILS % 0.5 % (0.0-1.0); EOSINOPHILS # (AUTO) 0.5 (0.0-0.4); EOSINOPHILS % 7.6 % (0.0-6.0); HEMATOCRIT 34.1 % (34.2-44.1); HEMOGLOBIN 10.3 g/dL (12.0-16.0); LYMPHOCYTES # (AUTO) 1.6 (1.0-3.2); LYMPHOCYTES % 24.8 % (18.0-39.1); MEAN CORPUSCULAR HEMOGLOBIN 24.3 pg (28-32); MEAN CORPUSCULAR HGB CONC 30.2 g/dL (31-35); MEAN CORPUSCULAR VOLUME 80.6 fL (81-99); MONOCYTES # (AUTO) 0.4 (0.2-0.8); MONOCYTES % 6.4 % (4.4-11.3); NEUTROPHILS # (AUTO) 3.8 (2.1-6.9); NEUTROPHILS % 60.4 % (38.7-80.0); PLATELET COUNT 151 x10e3/uL (140-360); RED BLOOD COUNT 4.23 x10e6/uL (3.6-5.1); RED CELL DISTRIBUTION WIDTH 17.3 % (11.7-14.4); WHITE BLOOD COUNT 6.28 x10e3/uL (4.8-10.8)
[2024-10-14 06:32] LABS: ANION GAP 15.1 mmol/L (8-16); CALCIUM 8.7 mg/dL (8.4-10.2); CREATININE, SERUM 0.88 mg/dL (0.57-1.11); MAGNESIUM 2.1 MG/DL (1.3-2.1); POTASSIUM 4.1 mmol/L (3.5-5.1)
[2024-10-14 06:40] LABS: TROPONIN I 0.008 ng/mL (0-0.300)
[2024-10-14 06:53] LABS: THYROID STIMULATING HORMONE 1.552 uIU/mL (0.350-4.940)
[2024-10-14] MEDS: MAGNESIUM OXIDE 400 MG TAB PO SCH (08:51)
[2024-10-14] MEDS: APIXABAN 5 MG TABLET PO SCH (12:37)
[2024-10-14] MEDS: PRAMIPEXOLE DIHYDROCHLORIDE 1 MG TAB PO SCH (17:06)
[2024-10-15] VITALS (8 sets, daily range): BP systolic 111–149; BP diastolic 48–84; PULSE 58–67; RESP 18–20; TEMP 97.9–98.6; O2SAT 94–98
[2024-10-15 06:14] LABS: BASOPHILS % 0.5 % (0.0-1.0); EOSINOPHILS # (AUTO) 0.5 (0.0-0.4); EOSINOPHILS % 7.7 % (0.0-6.0); HEMATOCRIT 34.1 % (34.2-44.1); HEMOGLOBIN 10.8 g/dL (12.0-16.0); LYMPHOCYTES # (AUTO) 1.6 (1.0-3.2); LYMPHOCYTES % 23.4 % (18.0-39.1); MEAN CORPUSCULAR HEMOGLOBIN 24.5 pg (28-32); MEAN CORPUSCULAR HGB CONC 31.7 g/dL (31-35); MEAN CORPUSCULAR VOLUME 77.5 fL (81-99); MONOCYTES # (AUTO) 0.5 (0.2-0.8); MONOCYTES % 7.1 % (4.4-11.3); NEUTROPHILS # (AUTO) 4.1 (2.1-6.9); PLATELET COUNT 176 x10e3/uL (140-360); RED CELL DISTRIBUTION WIDTH 17.1 % (11.7-14.4); WHITE BLOOD COUNT 6.66 x10e3/uL (4.8-10.8)
[2024-10-15 06:49] LABS: ANION GAP 15.9 mmol/L (8-16); CALCIUM 8.9 mg/dL (8.4-10.2); CREATININE, SERUM 0.84 mg/dL (0.57-1.11); POTASSIUM 3.9 mmol/L (3.5-5.1)
[2024-10-16] VITALS (8 sets, daily range): BP systolic 97–139; BP diastolic 43–84; PULSE 61–68; RESP 18–20; TEMP 97.6–98.2; O2SAT 94–98
[2024-10-16 08:28] LABS: ANION GAP 14.3 mmol/L (8-16); CALCIUM 9.2 mg/dL (8.4-10.2); CREATININE, SERUM 0.93 mg/dL (0.57-1.11); POTASSIUM 4.3 mmol/L (3.5-5.1)
[2024-10-16] MEDS: FUROSEMIDE INJ 10 MG/ML 4 ML VIAL IV SCH (09:13)
[2024-10-17] VITALS: BP 111/58; PULSE 63; RESP 18; TEMP 98; O2SAT 96
[2024-10-17 04:00] VITALS: BP 146/58; PULSE 58; RESP 20; TEMP 97.6; O2SAT 96
[2024-10-17 08:44] VITALS: BP 126/51; PULSE 60; RESP 18; TEMP 97.3; O2SAT 97
[2024-10-17 09:05] VITALS: BP 126/51; PULSE 60; RESP 18; TEMP 97.3; O2SAT 97
[2024-10-17 09:07] LABS: BASOPHILS % 0.6 % (0.0-1.0); EOSINOPHILS # (AUTO) 0.5 (0.0-0.4); EOSINOPHILS % 7.1 % (0.0-6.0); HEMATOCRIT 34.9 % (34.2-44.1); HEMOGLOBIN 10.9 g/dL (12.0-16.0); LYMPHOCYTES # (AUTO) 1.5 (1.0-3.2); MEAN CORPUSCULAR HEMOGLOBIN 24.5 pg (28-32); MEAN CORPUSCULAR HGB CONC 31.2 g/dL (31-35); MEAN CORPUSCULAR VOLUME 78.4 fL (81-99); MONOCYTES # (AUTO) 0.4 (0.2-0.8); MONOCYTES % 6.1 % (4.4-11.3); NEUTROPHILS # (AUTO) 4.5 (2.1-6.9); NEUTROPHILS % 64.9 % (38.7-80.0); PLATELET COUNT 172 x10e3/uL (140-360); RED BLOOD COUNT 4.45 x10e6/uL (3.6-5.1); WHITE BLOOD COUNT 6.92 x10e3/uL (4.8-10.8)
[2024-10-17 09:44] LABS: ANION GAP 14.6 mmol/L (8-16); CREATININE, SERUM 0.92 mg/dL (0.57-1.11); POTASSIUM 4.6 mmol/L (3.5-5.1)
[2024-10-17] MEDS: FUROSEMIDE 40 MG TAB PO SCH (09:47)
[2024-10-17 11:46] VITALS: BP 117/49; PULSE 62; RESP 17; TEMP 98.6; O2SAT 98
[2024-10-17] MEDS ORDERED: POTASSIUM CHLO20 ME1 PO (14:59)
[2024-10-17] MEDS ORDERED: MAG-OXIDE400 MG PO (14:59)
[2024-10-17] MEDS ORDERED: FUROSEMIDE40 MG PO (14:59)
[2024-10-17 15:55] VITALS: BP 109/56; PULSE 58; RESP 17; TEMP 98.5; O2SAT 98
== END 2024-10-17 18:30 | disposition home or self-care (01) | DRG 291 ==
LOC: ER 04:35 → ERHOLD 06:00 → MED/SURG3 08:21 → OBSVTOIN 10-14 20:19
PROVIDERS: ADMIT Internal Medicine; ATTEND Internal Medicine
DX: I13.0 Hypertensive heart and chronic kidney disease with heart failure and stage 1 through stage 4 chronic kidney disease, or unspecified chronic kidney disease (principal); I50.33 Acute on chronic diastolic (congestive) heart failure; I48.0 Paroxysmal atrial fibrillation; N18.31 Chronic kidney disease, stage 3a; R53.81 Other malaise; G25.81 Restless legs syndrome; I87.8 Other specified disorders of veins; E66.9 Obesity, unspecified; Z68.34 Body mass index [BMI] 34.0-34.9, adult; T50.2X6A Underdosing of carbonic-anhydrase inhibitors, benzothiadiazides and other diuretics, initial encounter; Z91.128 Patient's intentional underdosing of medication regimen for other reason; Z79.51 Long term (current) use of inhaled steroids; Z87.891 Personal history of nicotine dependence
CPT/HCPCS: 36415; 71045; 80048; 80053; 82550; 83735; 83880; 84443; 84484; 85025; 93005; 94799; 99284; G0378; J1938